=== PATIENT | female | born 1965 | race Asian ===

== ENCOUNTER 2023-08-13 09:04 | Observation (INO) ==
[2023-08-13 09:47] LABS: Hematocrit (blood only) 35.9 % (37.0-47.0); Mean Corpuscular Hemoglobin 23.1 pg (25.0-34.0); Mean Corpuscular Hgb Conc 30.6 g/dL (32.0-36.0); Mean Corpuscular Volume 75.4 fL (80.0-100.0); Mean Platelet Volume 11.5 fL (9.4-12.4); Platelet Count 273 K/uL (130-400); RDW Coefficient of Variation 14.7 % (11.5-14.5); RDW Standard Deviation 39.5 fL (36.4-46.3); Red Blood Count 4.76 M/uL (4.20-5.40)
--- NOTE | 2023-08-13 09:50 | Emergency Department Note ---
Impression & Plan Alteration in vision, Brain TIA, Generalized weakness ED Provider Note HISTORY OF PRESENT ILLNESS: Patient is a 57-year-old female presenting with increasing exhaustion and neurological deficits. Patient's daughter helps provide history. Reports the patient had a previous stroke in August 2021 which caused some left-sided weakness. She is on 81 mg of aspirin daily. Over the last 3 weeks, she has been having frequent episodes of changes in vision in the left eye and right arm numbness and tingling. States that she is also had intermittent episodes of slurred speech with the symptoms. Denies any recent falls or head injuries. Denies any chiropractic manipulation of her neck. No reported fevers. She has had some intermittent chest pain and nausea over the last 3 weeks. She was seen by her PCP yesterday and orders were placed, but they were referred to the emergency department due to her "altered mental status." Daughter reports the patient is alert but she is having increasing exhaustion and seems to get tired with the most minimal tasks. Patient describes her vision changes as "blurry and sometimes black spots in her left eye. ROS: as above PHYSICAL EXAM: Constitutional: Patient appears in no acute distress. HENT: Head: Normocephalic and atraumatic. Eyes: EOMI, PERRL Mouth/Throat: Mucous membranes moist. Neck: Trachea midline. Neck supple. Cardiovascular: RRR, No murmurs, rubs or gallops. Intact distal pulses. Pulmonary/Chest: No respiratory distress. Breath sounds clear and equal bilaterally. No wheezes or rales. Abdominal: Abdomen soft, no tenderness, rebound or guarding. Musculoskeletal: No edema, tenderness or deformity noted. Skin: Warm and dry. No rash, erythema, pallor or cyanosis Psychiatric: Appropriate mood and affect for situation. Neurological: Alert and keenly responsive. Facies symmetric. Able to raise eyebrows, close eyes, smile, puff mouth, stick out tongue, move tongue left and right and raise palate symmetrically. Able to shrug shoulders. PERRLA. SILT to forehead below eye and at jawline. Can hear soft noise bilaterally. Good finger to nose. Strength 5/5 in RUE and RLE. Strength 4/5 in LUE and LLE. SILT throughout bilateral upper and lower extremities. MDM: - Vitals signs showed hypertension - History obtained via patient. History as above. - Chronic conditions affecting care: previous CVA - Differential diagnoses include, but are not limited to: CVA; intracranial hemorrhage; ACS; dysrhythmia; electrolyte abnormality - Order placed for continuous cardiac monitoring. At this time, monitor showed rate of 60 bpm with normal sinus rhythm, per my interpretation. - External medical records reviewed. Primary care visit note dated yesterday was reviewed. Patient was seen in their clinic for her similar symptoms as today. They had ordered outpatient laboratory workup and outpatient MRI but had recommended referral to the ER for her altered mental status. - EKG interpreted by myself showed normal sinus rhythm. Rate bradycardic at 56 bpm. QT 408. No acute ischemic changes. - Laboratory workup interpreted by myself showed leukopenia (WBC 4.5); stable electrolytes; normal PT/INR - CXR negative for pneumonia, per my interpretation - CT head wo contrast for acute pathology, per radiology. Noted to have an age- indeterminate but likely chronic lacunar infarct in the right frontal lobe perez radiata, centrum semiovale and basal ganglia. - CTA head/neck showed mild plaque in the cavernous carotids without stenosis and no evidence of large vessel occlusion. Noted to have several hypodense foci within the right basal ganglia which favors old infarcts. - Discussion was had with case packer and sealer about patient's case and need for admission - Hospitalist consulted for admission - Patient admitted to [facility] for further evaluation and management. ASSESSMENT AND PLAN: Diagnosis: vision changes; brain TIA; generalized weakness Plan: admit Past Med/Surg History Social History Smoking Status: Never smoker Preferred Language: Nepali Feels Safe at Home: Yes Home Meds Home Medications Medication Instructions Recorded Confirmed amlodipine 10 mg tablet 10 mg PO QAM 08/13/23 08/13/23 atorvastatin 80 mg tablet 80 mg PO QAM 08/13/23 08/13/23 losartan 25 mg tablet 25 mg PO QAM 08/13/23 08/13/23 Results & Data (ED) Vital Signs Vital Signs - 24 hr 08/13/23 09:06 08/13/23 09:44 08/13/23 10:00 Temperature 36.3 C L Temperature Source Temporal Artery Scan Pulse Rate 68 63 58 L Pulse Rate from SpO2 Sensor 58 L Respiratory Rate 20 17 Respiratory Effort / Characteristics Non-Labored Spontaneous Respiratory Depth Normal Blood Pressure 148/78 H 138/80 Blood Pressure Mean 101 99 Pulse Oximetry 98 99 Oxygen Delivery Method Room Air Sepsis Recent Fever Within 48 Hours No Sepsis New/Unexplained Change in Mental Status N/A Sepsis Action Taken by Nursing No Action Required Laboratory Data 08/13/23 09:30 08/13/23 09:30 Lab Results 08/13/23 08/13/23 Range/Units 09:30 09:35 WBC 4.50 L (4.8-10.8) K/ul RBC 4.76 (4.20-5.40) M/uL Hgb 11.0 L (12.0-16.0) g/dl POC Hgb 11.9 L (12.0-16.0) g/dl Hct 35.9 L (37.0-47.0) % POC Hct 35 L (37-47) % MCV 75.4 L (80.0-100.0) fL MCH 23.1 L (25.0-34.0) pg MCHC 30.6 L (32.0-36.0) g/dL RDW Std Deviation 39.5 (36.4-46.3) fL RDW Coeff of Lauryn 14.7 H (11.5-14.5) % Plt Count 273 (130-400) K/uL MPV 11.5 (9.4-12.4) fL PT 10.8 (9.0-12.0) Seconds INR 1.0 (0.9-1.1) APTT 30 (21-31) Seconds PTT Ratio 1.1 POC Sodium 143 (135-144) mmol/L Sodium 141 (136-145) mmol/L POC Potassium 3.7 (3.3-5.0) mmol/L Potassium 3.6 (3.5-5.1) mmol/L POC Chloride 104 (101-112) mmol/L Chloride 107 (98-107) mmol/L Carbon Dioxide 28 (21-32) mmol/L POC Total CO2 30 (24-31) mmol/L Anion Gap 6 (3-11) POC Anion Gap 15.0 L (16-25) mmol/L POC BUN 17 (7-18) mg/dl BUN 17 (6-23) mg/dl Creatinine 0.73 (0.6-1.2) mg/dl POC Creatinine 0.7 (0.6-1.3) mg/dl Est Cr Clr Drug Dosing 68.7 ml/min Est GFR ( Amer) 106.0 ml/min Est GFR (Non-Af Amer) 91.4 ml/min BUN/Creatinine Ratio 23.3 H (10-20) Glucose 139 H (70-99(Fasting)) mg/dl POC Glucose (other) 135 H (70-99) mg/dl Calcium 9.1 (8.6-10.3) mg/dl POC Ioniz Calcium Radha 1.26 (1.12-1.32) mmol/l Magnesium 1.9 (1.7-2.4) mg/dl Total Bilirubin 0.9 (0.2-1.0) mg/dl AST 16 (13-39) U/L ALT 20 (7-52) U/L Alkaline Phosphatase 56 (34-104) U/L Total Protein 6.8 (6.0-8.3) gm/dl Albumin 4.3 (3.4-5.0) gm/dl Globulin 2.5 (2.5-4.0) gm/dl Albumin/Globulin Ratio 1.7 (0.9-2) Administered Medications Discontinued Medications Ioversol (Optiray 320 125ml) 112 ml IV ONCE ONE Stop: 08/13/23 10:37 Last Admin: 08/13/23 10:36 Dose: 112 ml Documented By: BARI Imaging Data Radiologist's Impression: Chest X-Ray 08/13/23 09:13 XR chest 1V portable HISTORY: stroke alert COMPARISON: None. FINDINGS: There are low lung volumes. No pleural effusions. No pneumothorax. The cardiac silhouette is mildly enlarged. This could be due to the AP portable technique and low lung volumes. No evidence for pulmonary edema. No focal lung consolidations to suggest a pneumonia. No acute fractures. IMPRESSION: Mild cardiomegaly. This could be technical. Otherwise, no acute process within the chest. ACT 112: Negative or not required by law. Electronically signed by: Teodoro Gonzalez M.D. 08/13/2023 10:[address] 08/13/23 09:29 CT head/brain wo con CLINICAL HISTORY: 57 years-old Female with L eye vision loss. Acute left eye vision loss with strokelike symptoms TECHNIQUE: Multiple axial CT images of the head were obtained without contrast. A dose lowering technique was utilized adhering to the principles of ALARA. COMPARISON: CTA of the head of same day FINDINGS: No acute intracranial hemorrhage, midline shift, intracranial mass, hydrocephalus, territorial ischemia or abnormal extra-axial collection. Hypodense foci within the right frontal lobe perez radiata, centrum semiovale and basal ganglia are noted including a 1.6 and meter right coronal radiata focus on image 16 series 2. Mild white matter hypodensities. Cerebral vascular calcifications. The calvarium is intact. The paranasal sinuses, mastoid air cells, and middle ear cavities are clear. IMPRESSION: 1. No acute intracranial hemorrhage, midline shift or acute territorial infarct. 2. Age-indeterminate however likely chronic lacunar infarcts within the right frontal lobe perez radiata, centrum semiovale and basal ganglia. ACT 112: Negative or not required by law. The above report was generated using voice recognition software. It may contain grammatical, syntax or spelling errors. Electronically signed by: Osmany Silveira M.D. 08/13/2023 11:08 AM Head CTA 08/13/23 09:29 CTA ANGIOGRAPHY OF THE HEAD CLINICAL HISTORY: Left eye vision loss. COMPARISON STUDY: No previous studies for comparison. TECHNIQUE: Helical axial images of the head were obtained following uneventful intravenous administration of 112 cc of Optiray. Sagittal and coronal reconstructions were viewed as well as maximal intensity projections on an independent 3-D workstation. Automated exposure control was utilized for the study. A dose lowering technique was utilized adhering to the principles of ALARA. CT DOSE: 929.94 mGy.cm FINDINGS: No acute intracranial hemorrhage is identified. Ventricular system is normal. Basal cisterns are patent. Several hypodense foci within the right basal ganglia measure up to 1.8 cm. The bilateral M1, M2, A1 and A2 segments are patent. There is mild plaque within the bilateral cavernous carotids without stenosis. There is no intracranial aneurysm. There is no vessel occlusion. There is mild plaque within the deep 4 segment of the left vertebral artery without stenosis. History circulation is intact IMPRESSION: 1. No vessel occlusion identified. No intracranial aneurysm. 2. Mild plaque within the cavernous carotids without stenosis. 3. Several hypodense foci within the right basal ganglia. Although technically age indeterminate, these favor old infarcts. ACT 112: Negative or not required by law. Electronically signed by: Mikel Page M.D. 08/13/2023 10:57 AM Neck CTA 08/13/23 09:29 NECK CTA HISTORY: L eye vision loss TECHNIQUE: Multiaxial CT images of the neck were performed following the intravenous administration of contrast to evaluate the major cervical vessels. 3D/MIP images were also obtained. Sagittal and coronal reformats were reviewed. All measurements were calculated based on NASCET criteria. A dose lowering technique was utilized adhering to the principles of ALARA. COMPARISON STUDY: None. FINDINGS: The aortic arch and proximal great vessels are widely patent. There is no significant stenosis, occlusion, or dissection identified within the bilateral common carotid, internal carotid, or vertebral arteries. A few subcentimeter thyroid nodules. These do not meet CT criteria for follow-up. There is a punctate focus of calcified plaque within the left carotid bulb and within the distal left vertebral artery. Mild noncalcified atherosclerotic plaque within the proximal left subclavian artery without significant stenosis. IMPRESSION: No significant stenosis, occlusion, or dissection identified within the carotid or vertebral arteries. ACT 112: Negative or not required by law. Electronically signed by: Teodoro Gonzalez M.D. 08/13/2023 10:52 AM Discharge Plan Visit Data Chief Complaint: TIA Symptoms Stated Complaint: EXHAUSTED,VISUAL DISTURBANCE L EYE,STROKE HX,DOC R ED Provider: Kiki Lange Discharge Problem: Alteration in vision, Brain TIA, Generalized weakness Forms Stand Alone Forms: My [facility] Prescriptions Prescriptions: No Action atorvastatin 80 mg tablet 80 mg PO QAM amlodipine 10 mg tablet 10 mg PO QAM losartan 25 mg tablet 25 mg PO QAM Referrals Referrals: PCP,NO [Physician] -
[2023-08-13 09:51] LABS: iSTAT Creatinine 0.7 mg/dl (0.6-1.3); iSTAT Hemoglobin 11.9 g/dl (12.0-16.0); iSTAT Ionized Calcium 1.26 mmol/l (1.12-1.32); iSTAT Potassium 3.7 mmol/L (3.3-5.0)
[2023-08-13 10:04] LABS: Albumin Globulin Ratio 1.7 (0.9-2); Albumin Level 4.3 gm/dl (3.4-5.0); BUN Creatinine Ratio 23.3 (10-20); Bilirubin,Total 0.9 mg/dl (0.2-1.0); Calcium 9.1 mg/dl (8.6-10.3); Creatinine Clr Calc Pharmacy 68.7 ml/min; Est GFR (Non-African American) 91.4 ml/min; Globulin 2.5 gm/dl (2.5-4.0); Magnesium 1.9 mg/dl (1.7-2.4); Potassium 3.6 mmol/L (3.5-5.1); Total Protein 6.8 gm/dl (6.0-8.3)
--- NOTE | 2023-08-13 10:06 | XRay Report ---
XR chest 1V portable HISTORY: stroke alert COMPARISON: None. FINDINGS: There are low lung volumes. No pleural effusions. No pneumothorax. The cardiac silhouette i s mildly enlarged. This could be due to the AP portable technique and low lung volumes. No evidence f or pulmonary edema. No focal lung consolidations to suggest a pneumonia. No acute fractures. IMPRESSION: Mild cardiomegaly. This could be technical. Otherwise, no acute process within the chest. ACT 112: Negative or not required by law. Electronically signed by: Teodoro Gonzalez M.D. 08/13/2023 10:04 AM
[2023-08-13 10:15] LABS: Partial Thromboplastin Ratio 1.1; Partial Thromboplastin Time 30 Seconds (21-31); Prothrombin Time 10.8 Seconds (9.0-12.0)
[2023-08-13] MEDS: OPTIRAY 320 125ml IV ONE (10:36)
--- NOTE | 2023-08-13 10:54 | CT Scan Report ---
NECK CTA HISTORY: L eye vision loss TECHNIQUE: Multiaxial CT images of the neck were performed following the intravenous administration o f contrast to evaluate the major cervical vessels. 3D/MIP images were also obtained. Sagittal and cor onal reformats were reviewed. All measurements were calculated based on NASCET criteria. A dose low ering technique was utilized adhering to the principles of ALARA. COMPARISON STUDY: None. FINDINGS: The aortic arch and proximal great vessels are widely patent. There is no significant sten osis, occlusion, or dissection identified within the bilateral common carotid, internal carotid, or v ertebral arteries. A few subcentimeter thyroid nodules. These do not meet CT criteria for follow-up. There is a punctate focus of calcified plaque within the left carotid bulb and within the distal left vertebral artery. Mild noncalcified atherosclerotic plaque within the proximal left subclavian arter y without significant stenosis. IMPRESSION: No significant stenosis, occlusion, or dissection identified within the carotid or vertebral arteries . ACT 112: Negative or not required by law. Electronically signed by: Teodoro Gonzalez M.D. 08/13/2023 10:52 AM
--- NOTE | 2023-08-13 10:59 | CT Scan Report ---
CTA ANGIOGRAPHY OF THE HEAD CLINICAL HISTORY: Left eye vision loss. COMPARISON STUDY: No previous studies for comparison. TECHNIQUE: Helical axial images of the head were obtained following uneventful intravenous administr ation of 112 cc of Optiray. Sagittal and coronal reconstructions were viewed as well as maximal inten sity projections on an independent 3-D workstation. Automated exposure control was utilized for the study. A dose lowering technique was utilized adhering to the principles of ALARA. CT DOSE: 929.94 mGy.cm FINDINGS: No acute intracranial hemorrhage is identified. Ventricular system is normal. Basal cistern s are patent. Several hypodense foci within the right basal ganglia measure up to 1.8 cm. The bilater al M1, M2, A1 and A2 segments are patent. There is mild plaque within the bilateral cavernous carotid s without stenosis. There is no intracranial aneurysm. There is no vessel occlusion. There is mild pl aque within the deep 4 segment of the left vertebral artery without stenosis. History circulation is intact IMPRESSION: 1. No vessel occlusion identified. No intracranial aneurysm. 2. Mild plaque within the cavernous carotids without stenosis. 3. Several hypodense foci within the right basal ganglia. Although technically age indeterminate, the se favor old infarcts. ACT 112: Negative or not required by law. Electronically signed by: Mikel Page M.D. 08/13/2023 10:57 AM
--- NOTE | 2023-08-13 11:10 | CT Scan Report ---
CT head/brain wo con CLINICAL HISTORY: 57 years-old Female with L eye vision loss. Acute left eye vision loss with stroke like symptoms TECHNIQUE: Multiple axial CT images of the head were obtained without contrast. A dose lowering tech nique was utilized adhering to the principles of ALARA. COMPARISON: CTA of the head of same day FINDINGS: No acute intracranial hemorrhage, midline shift, intracranial mass, hydrocephalus, territorial ischem ia or abnormal extra-axial collection. Hypodense foci within the right frontal lobe perez radiata, c entrum semiovale and basal ganglia are noted including a 1.6 and meter right coronal radiata focus on image 16 series 2. Mild white matter hypodensities. Cerebral vascular calcifications. The calvarium is intact. The paranasal sinuses, mastoid air cells, and middle ear cavities are clear . IMPRESSION: 1. No acute intracranial hemorrhage, midline shift or acute territorial infarct. 2. Age-indeterminate however likely chronic lacunar infarcts within the right frontal lobe perez rad iata, centrum semiovale and basal ganglia. ACT 112: Negative or not required by law. The above report was generated using voice recognition software. It may contain grammatical, syntax o r spelling errors. Electronically signed by: Osmany Silveira M.D. 08/13/2023 11:08 AM
--- NOTE | 2023-08-13 12:25 | History & Physical Report ---
Date of Service August 13, 2023 Assessment & Plan (1) Generalized weakness: Plan: Cristal Mcgrath is a 57yo F with PMH of stroke with cerebral ischemia (August 2021) with residual left-sided weakness , HTN, pre-diabetes, high cholesterol and microcytic hypochromic anemia who presented to the ED via referral by Gayle Marques PA-C ([facility]) for evaluation of increasing fatigue, alterations in vision of the left eye, right upper extremity weakness/nu mbness/tingling and nausea x 3 weeks. Neck CTA shows no significant stenosis, occlusion or dissection within the carotid or vertebral arteries. Head CTA shows no acute vessel occlusion or intracranial aneurysm. Head CT displays no evidence of acute intracranial hemorrhage, midline shift or acute territorial infarct. Also noted to have horizontal nystagmus in the left eye on exam. Will continue to observe patient. Order brain MRI, routine neuro consult. Order echo w/ bubble study, PT/OT evaluation. Routine fasting lipid panel in the AM. Given aspirin 324mg in ED. Continue aspirin 81mg po daily, high-dose statin. (2) Microcytic hypochromic anemia: Plan: CBC displays slight leukopenia, as well as microcytic, hypochromic anemia. Iron panel ordered for AM, repeat CBC. Could be a contributing factor to weakness, as above. (3) HTN (hypertension): Plan: Continue home amlodipine 10mg po QAM and losartan 25mg po QAM. (4) Pre-diabetes: Plan: A1C 5.8 earlier this month. BSG on admission 139. Repeat BMP in AM, add SSI as indicated. (5) High cholesterol: Plan: Continue home atorvastatin 80mg po QAM. DVT Prophylaxis: SCDs, SQ Heparin Code Status: Full Code PCP: Gayle Marques PA-C Dispo: Admit to PCU w/ Telemetry Patient seen in collaboration with Dr. Miguel. Please see addendum. I spent a total of 75 minutes coordinating, documenting, and providing care for this patient excluding time spent in the performance of separately billed services. This included personally reviewing all current laboratories and imaging studies, medical reconciliation, outpatient chart review and discussion with specialists. History of Present Illness Chief Complaint: Stroke-Like Symptoms Primary Care Provider: Gayle Marques PA-C Cristal Mcgrath is a 57yo F with PMH of stroke with cerebral ischemia (August 2021), HTN, pre-diabetes, high cholesterol and microcytic hypochromic anemia who presented to the ED via referral by Gayle Marques PA-C ([facility]) for evaluation of increasing fatigue, alterations in vision of the left eye, right upper extremity weakness/numbness/tingling and nausea x 3 weeks. History obtained from patient and her daughter (who overall translates directly for the patient), and from PCP records. Patient was offered translation services in the ED (patient primarily speaks Swazi), but daughter prefers to be the direct health and wellness advisor for her at this time. Daughter reports that the patient was seen by primary care yesterday (Gayle Marques PA-C) with the same continuation of symptoms she is presenting with here today; however, she was referred to report to the ED with any further mental status changes/no improvement of symptoms. Daughter reports that the patient experienced a stroke in August 2021, which left her with resulting weakness of the entire left side of her body. Patient does currently take 81mg of aspirin daily, and her daughter reports that the patient has not followed-up with neurology since her stroke in 2021. But over the past 3 weeks, the patient has been complaining of intermittently fleeting episodes of v ision changes in her left eye and right arm weakness/numbness/tingling. Per her daughter, the patient has been experiencing on/off episodes of blurriness and "black spots" in her left eye. These episodes of vision alteration are typically invoked with positional changes, and are often worse when sitting down per the daughter's explanation. Patient does report dizziness sometimes during these episodes as well; daughter explains that the patient has to sit down and close both eyes to assist in the cessation of such episodes, which generally does the trick. Daughter denies any prior diagnosis of vertigo, nor that the patient takes any medication for dizzy spells. In addition, the right arm weakness/numbness/tingling generally comes "in waves" per her daughter. Patient does report pain in her right shoulder as well, which radiates all the way down to her hand during these "waves" of intermittent upper right extremity changes. Patient has not been taking any OTC pain medications for this fleeting right arm pain, per her daughter. Patient denies any left lower extremity deficits/changes at this time. Patient does report intermittent chest pain, which has also been occurring on/off for the past 3 weeks. Daughter denies any episodes of SOB associated with the chest pain, and also denies any prior occurrences where the patient experienced chest pain as so. Her daughter also mentions instances where the patient has been slurring her speech occasionally over the past 3 weeks. However, the daughter denies any signs of facial drooping at this time. Patient also denies any fevers, recent illnesses, body aches or headaches. Daughter did mention that the patient has become increasingly tired/fatigued x 3 weeks, and that the patient reports increased intensity of the symptoms discussed above ( left eye vision changes, right-sided UE weakness/numbness/tingling, dizziness, nausea) when she is sleepy. Patient denies any episodes of vomiting, and also denies taking any anti-emetic medications for the ongoing on/off nausea x 3 weeks. Daughter explains that the patient is able to ambulate just fine around the house (daughter lives with her); she does not use any assistive devices when walking (e.g., walker, cane, etc.) and does not require any direct assistance with ADLs. Daughter states that the patient has not had any recent falls or fainting spells/episodes where she's lost consciousness. Daughter mentions that the patient has been alert at home, but has been acting more exhausted. Pertinent Imaging Results - Performed by ED: Neck CTA shows no significant stenosis, occlusion or dissection within the carotid or vertebral arteries. Head CTA shows no acute vessel occlusion or intracranial aneurysm. Head CT displays no evidence of acute intracranial hemorrhage, midline shift or acute territorial infarct. Chest x-ray shows no acute process within the chest; mild cardiomegaly was noted, however, it was mentioned it may be technical. Pertinent Lab Results - Performed by ED: CBC displays slight leukopenia, as well as microcytic, hypochromic anemia. Chem panel displays slightly elevated in BUN/Cr ratio, hyperglycemia. Other Pertinent Results - Performed by ED: Personal interpretation of the EKG reveals normal sinus rhythm, no acute ischemic changes; Vent rate 62bpm, AL interval 146ms, QRS duration 76ms. Allergies Allergy/AdvReac Type Severity Reaction Status Date / Time No Known Drug Allergies Allergy Unverified 08/13/23 13:41 Home Medications Medication Instructions Recorded Confirmed Type amlodipine 10 mg tablet 10 mg PO QAM 08/13/23 08/13/23 History aspirin 81 mg tablet 81 mg PO DAILY 08/13/23 08/13/23 History atorvastatin 80 mg tablet 80 mg PO QAM 08/13/23 08/13/23 History losartan 25 mg tablet 25 mg PO QAM 08/13/23 08/13/23 History Past Med/Surg History Medical History (Updated 08/13/23 @ 14:45 by Kaya Zaidi PA-C) Microcytic hypochromic anemia High cholesterol Pre-diabetes HTN (hypertension) Family History Mother Stroke Father Coronary heart disease Social History Smoking Status: Never smoker Hx Alcohol Use: No Hx Substance Use: No Preferred Language: Croatian Communication Ability: Effective Communication Ability Comment: Swazi [employer] Integration Architect Required: Yes Beliefs That Will Affect Care: Gnosticist Gnosticist Beliefs: Mandaen Current Living Situation: Family Current Living Situation Comment: Patient currently lives at home with her katty angel. Other Information That Helps Us Care for You: No Feels Safe at Home: Yes Safety Concerns: Feels Safe At This Time Review of Systems Constitutional: + fatigue (patient more exhausted than u sual, per daughter), + weakness (right upper extremity) and + daytime sleepiness; no fever, no chills and no body aches Eyes: as per Subjective / HPI Respiratory: no cough and no dyspnea Cardiovascular: as per Subjective / HPI Gastrointestinal: + nausea; no abdominal pain and no vomit ing Patient's daughter does report that she has been experiencing some difficulty swallowing since her stroke in August 2021. Genitourinary: no dysuria and no difficulty urinating Musculoskeletal: as per Subjective / HPI Integumentary: no rash Neurologic: as per Subjective / HPI Psychiatric: as per Subjective / HPI; no confusion Endocrine: as per Subjective / HPI Physical Exam Constitutional: WD/WN, vitals as above Eyes: + nystagmus (noted in the left eye on ex amination); normal pupil size Patient having difficulty viewing the left upper visual field with her left eye, complicated by horizontal nystagmus in the left eye upon conducting neurological examination. Neck: trachea midline, no thyromegaly Respiratory: normal respiratory effort, lungs clear to auscultation Cardiovascular: RRR, no murmur, no edema Gastrointestinal (Abdomen): normal bowel sounds, soft, nontender, no hepatosplenomegaly Musculoskeletal: Head/Neck/Chest: neck supple; full ROM of neck Extremities: extremities normal to inspection; full ROM of extremities and full ROM of lower extremities Shoulder: normal ROM of shoulder Knee: normal ROM of knee Strength 3/5 L UE, Strength 5/5 R UE Skin: no rashes, warm and dry Neurologic: Speech / Cognition: normal speech Coordination: normal [id number] test, normal [id number] test and normal rapid alternating movements Psychiatric: A+Ox3, euthymic affect Apperance: appropriately dressed and appropriately groomed Eye Contact: good eye contact Speech: normal rate/rhythm/volume of speech Results & Data Results & Data Vital Signs (Past 12 Hours) Vital Signs Temp Pulse Resp BP Pulse Ox O2 Del Method 08/13/23 12:00 59 L 14 135/78 95 Room Air 08/13/23 11:00 58 L 14 132/78 97 Room Air 08/13/23 10:00 58 L 17 138/80 99 08/13/23 09:44 63 08/13/23 09:06 36.3 C L 68 20 148/78 H 98 Room Air Laboratory Results Short CBC 08/13/23 Range/Units 09:30 WBC 4.50 L (4.8-10.8) K/ul Hgb 11.0 L (12.0-16.0) g/dl Hct 35.9 L (37.0-47.0) % Plt Count 273 (130-400) K/uL BMP 08/13/23 09:30 Sodium 141 Potassium 3.6 Chloride 107 Carbon Dioxide 28 BUN 17 Creatinine 0.73 Glucose 139 H Calcium 9.1 Liver Function 08/13/23 Range/Units 09:30 Total Bilirubin 0.9 (0.2-1.0) mg/dl AST 16 (13-39) U/L ALT 20 (7-52) U/L Alkaline Phosphatase 56 (34-104) U/L Albumin 4.3 (3.4-5.0) gm/dl Diagnostic Findings Chest X-Ray 08/13/23 09:13 XR chest 1V portable HISTORY: stroke alert COMPARISON: None. FINDINGS: There are low lung volumes. No pleural effusions. No pneumothorax. The cardiac silhouette is mildly enlarged. This could be due to the AP portable technique and low lung volumes. No evidence for pulmonary edema. No focal lung consolidations to suggest a pneumonia. No acute fractures. IMPRESSION: Mild cardiomegaly. This could be technical. Otherwise, no acute process within the chest. ACT 112: Negative or not required by law. Electronically signed by: Teodoro Gonzalez M.D. 08/13/2023 10:[address] 08/13/23 09:29 CT head/brain wo con CLINICAL HISTORY: 57 years-old Female with L eye vision loss. Acute left eye vision loss with strokelike symptoms TECHNIQUE: Multiple axial CT images of the head were obtained without contrast. A dose lowering technique was utilized adhering to the principles of ALARA. COMPARISON: CTA of the head of same day FINDINGS: No acute intracranial hemorrhage, midline shift, intracranial mass, hydrocephalus, territorial ischemia or abnormal extra-axial collection. Hypodense foci within the right frontal lobe perez radiata, centrum semiovale and basal ganglia are noted including a 1.6 and meter right coronal radiata focus on image 16 series 2. Mild white matter hypodensities. Cerebral vascular calcifications. The calvarium is intact. The paranasal sinuses, mastoid air cells, and middle ear cavities are clear. IMPRESSION: 1. No acute intracranial hemorrhage, midline shift or acute territorial infarct. 2. Age-indeterminate however likely chronic lacunar infarcts within the right frontal lobe perez radiata, centrum semiovale and basal ganglia. ACT 112: Negative or not required by law. The above report was generated using voice recognition software. It may contain grammatical, syntax or spelling errors. Electronically signed by: Osmany Silveira M.D. 08/13/2023 11:08 AM Head CTA 08/13/23 09:29 CTA ANGIOGRAPHY OF THE HEAD CLINICAL HISTORY: Left eye vision loss. COMPARISON STUDY: No previous studies for comparison. TECHNIQUE: Helical axial images of the head were obtained following uneventful intravenous administration of 112 cc of Optiray. Sagittal and coronal reconstructions were viewed as well as maximal intensity projections on an independent 3-D workstation. Automated exposure control was utilized for the study. A dose lowering technique was utilized adhering to the principles of ALARA. CT DOSE: 929.94 mGy.cm FINDINGS: No acute intracranial hemorrhage is identified. Ventricular system is normal. Basal cisterns are patent. Several hypodense foci within the right basal ganglia measure up to 1.8 cm. The bilateral M1, M2, A1 and A2 segments are patent. There is mild plaque within the bilateral cavernous carotids without stenosis. There is no intracranial aneurysm. There is no vessel occlusion. There is mild plaque within the deep 4 segment of the left vertebral artery without stenosis. History circulation is intact IMPRESSION: 1. No vessel occlusion identified. No intracranial aneurysm. 2. Mild plaque within the cavernous carotids without stenosis. 3. Several hypodense foci within the right basal ganglia. Although technically age indeterminate, these favor old infarcts. ACT 112: Negative or not required by law. Electronically signed by: Mikel Page M.D. 08/13/2023 10:57 AM Neck CTA 08/13/23 09:29 NECK CTA HISTORY: L eye vision loss TECHNIQUE: Multiaxial CT images of the neck were performed following the intravenous administration of contrast to evaluate the major cervical vessels. 3D/MIP images were also obtained. Sagittal and coronal reformats were reviewed. All measurements were calculated based on NASCET criteria. A dose lowering technique was utilized adhering to the principles of ALARA. COMPARISON STUDY: None. FINDINGS: The aortic arch and proximal great vessels are widely patent. There is no significant stenosis, occlusion, or dissection identified within the bilateral common carotid, internal carotid, or vertebral arteries. A few subcentimeter thyroid nodules. These do not meet CT criteria for follow-up. There is a punctate focus of calcified plaque within the left carotid bulb and within the distal left vertebral artery. Mild noncalcified atherosclerotic plaque within the proximal left subclavian artery without significant stenosis. IMPRESSION: No significant stenosis, occlusion, or dissection identified within the carotid or vertebral arteries. ACT 112: Negative or not required by law. Electronically signed by: Teodoro Gonzalez M.D. 08/13/2023 10:52 AM Medications Administered Discontinued Medications Aspirin (Aspirin 81 Mg Chew) 324 mg PO NOW STA Stop: 08/13/23 13:55 Last Admin: 08/13/23 14:02 Dose: 324 mg Documented By: SHAISTAO Ioversol (Optiray 320 125ml) 112 ml IV ONCE ONE Stop: 08/13/23 10:37 Last Admin: 08/13/23 10:36 Dose: 112 ml Documented By: BARI ECG Additional Comments: Personal interpretation of the EKG reveals normal sinus rhythm, no acute ischemic changes; Vent rate 62bpm, AL interval 146ms, QRS duration 76ms. Code Status & VTE Plan Code Status FULL CODE Supervising Physician Co-Signing Physician Notes Pt was seen and examined by myself, Thea Miguel MD on the day of service. Care was coordinated with Kaya Zaidi PA-C. 57yoF with Hx of prior CVA presenting with fatigue, numbness and tingling of right extremities and left eye vision changes and nystagmus. Daughter present at bedside provides the Hx. States that pt had undiagnosed severe HTN that previously caused her strokes. On exam pt in no acute distress, noted L arm weakness. Stroke workup, anemia panel for noted microcytic anemia (?thalessemia in pt history?) Neurology consult, appreciate recs Otherwise as above. I spent a total [id number] coordinating, documenting, and providing care for this patient excluding time spent in the performance of separately billed services (3) HTN (hypertension) Hypertension type: unspecified Qualified Code(s): I10 - Essential (primary) hypertension
[2023-08-13] MEDS: ASPIRIN 81 MG CHEW PO STA (14:02)
--- NOTE | 2023-08-13 15:52 | Electrocardiogram Report ---
Test Reason : Blood Pressure : / mmHG Vent. Rate : 062 BPM Atrial Rate : 062 BPM P-R Int : 146 ms QRS Dur : 076 ms QT Int : 386 ms P-R-T Axes : 035 009 012 degrees QTc Int : 391 ms Normal sinus rhythm Normal ECG No previous ECGs available Confirmed by Etienne Thomas ([id number]) on 08/13/2023 3:52:08 PM Referred By: REFERRED SELF Confirmed By:Etienne Thomas
[2023-08-13] MEDS ORDERED: PHARMACIST DISCHARGE MED REC CONSULT PRN (15:59)
[2023-08-13] MEDS ORDERED: ONDANSETRON INJ 2 MG/ML 2 ML VIAL IV PRN (15:59)
[2023-08-13] MEDS ORDERED: POLYETHYLENE (MIRALAX) 17 GM PACK PO PRN (15:59)
[2023-08-13] MEDS ORDERED: ACETAMINOPHEN 325 MG TAB PO PRN (15:59)
[2023-08-13] MEDS: HEPARIN SOD 5,000 UNIT/0.5 ML VIAL SQ SCH (21:18)
[2023-08-13] MEDS: GADOBUTROL 65ML VIAL IV ONE (22:16)
--- NOTE | 2023-08-13 22:55 | Magnetic Resonance Report ---
Exam(s): MRI HEAD W/WO Contrast IV Amt: 6CC GADAVIST EXAM: MR Head Without and With Intravenous Contrast CLINICAL HISTORY: Reason for exam: stroke eval. TECHNIQUE: Magnetic resonance images of the head/brain without and with intravenous contrast in multiple planes. CONTRAST: Patient received 6CC GADAVIST of IV contrast COMPARISON: CT head 08/13/2023. FINDINGS: Brain: Age-appropriate central and peripheral atrophy. No acute stroke. Old right basal ganglia and perez radiata lacunar infarcts. Moderate degree of supratentorial periventricular and subcortical white matter hyperintensities on FLAIR and T2-weighted images. No acute hemorrhage or abnormal extra-axial fluid collection. No mass lesion. No abnormal parenchymal or leptomeningeal enhancement postcontrast. Ventricles: No midline shift. No ventriculomegaly. Bones/joints: Unremarkable. No acute fracture. Sinuses: Unremarkable as visualized. No acute sinusitis. Mastoid air cells: Unremarkable as visualized. No mastoid effusion. Orbits: Unremarkable as visualized. IMPRESSION: 1. No acute stroke or hemorrhage. 2. Old right basal ganglia and perez radiata white matter infarcts. 3. Nonspecific white matter changes most commonly seen with small vessel disease. Electronically signed by: Olvin Cummings M.D. 08/13/23 22:54 PM
[2023-08-14 06:15] LABS: Hematocrit (blood only) 36.9 % (37.0-47.0); Hemoglobin 11.2 g/dl (12.0-16.0); Mean Corpuscular Hemoglobin 22.6 pg (25.0-34.0); Mean Corpuscular Hgb Conc 30.4 g/dL (32.0-36.0); Mean Corpuscular Volume 74.4 fL (80.0-100.0); Platelet Count 263 K/uL (130-400); RDW Coefficient of Variation 14.5 % (11.5-14.5); RDW Standard Deviation 38.6 fL (36.4-46.3); Red Blood Count 4.96 M/uL (4.20-5.40); White Blood Count 4.07 K/ul (4.8-10.8)
[2023-08-14 06:40] LABS: Calcium 8.9 mg/dl (8.6-10.3); Chol HDL Ratio 2.4 (0-5); Est GFR (African American) 94.9 ml/min; Est GFR (Non-African American) 81.8 ml/min; Potassium 3.8 mmol/L (3.5-5.1)
[2023-08-14 06:58] LABS: Ferritin 189.6 ng/ml (8-388)
--- NOTE | 2023-08-14 08:45 | Neurology Consultation ---
Date of Consultation August 14, 2023 Assessment & Plan (1) Generalized weakness: (2) Alteration in vision: Plan 57 y/o F with right arm paresthesias with associated aching pain in arm and shoulder/neck pain; suspect this could represent cervical spine disease in light of normal MRI brain. Doubt these symptoms are cerebrovascular in nature. Regarding intermittent left eye vision loss, GCA should be considered with patient's age and presence of headache. - Recommend ophthalmology evaluation for dilated funduscopy to eval for NAION/AION - Check ESR/CRP, if elevated consider temporal artery biopsy and empiric steroid treatment - MRI C Spine (can be done outpatient) - Outpatient EMG/NCS of RUE - Refer to OP Neurology Telehealth Consultation Telehealth Information Telehealth Information: I performed this visit using a real-time telehealth connection between my location and the patients location ([facility]). After connecting through interactive tele-video, patient was identified by name and date of and/or wristband check.Patient (or authorized healthcare passenger representative) was informed that this was a telemedicine visit and it was being conducted confidentially over secure lines. My office door was closed and no one else was present in the room with me.Patient (or authorized healthcare passenger representative) provided consent to proceed with the visit, expressed an understanding of privacy and security of the telemedicine visit, and gave permission to have a hospital passenger representative in the room in order to assist with the visit and to conduct portions of the visit, as needed. I informed the patient (or authorized healthcare passenger representative) that I reviewed their record and presented the opportunity for them to ask any questions regarding the visit today. The patient agreed to participate. 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 Daughter present at bedside who acts as right of way maintenance supervisor by her preference. Patient had no neuro follow-up after stroke. For the last 3 weeks the patient has been more tired and reports that her left eye vision is "going in and out." Denies double vision. Also reports having tingling in right arm and hand as well as chest pain radiating into right shoulder and chest. Daughter reports balance issues that are worse. Has nausea with the exhaustion and gets YAÑEZ with the symptoms. YAÑEZ only present some of the time. Symptoms have been present for last 3 weeks of varying intensity but never resolved. Occasional forgets things, no behavioral issues. Paresthesias only involve the arm, not leg or face. She feels aching pain into the arm as well as neck pain, more on left than right. Allergies Allergy/AdvReac Type Severity Reaction Status Date / Time No Known Drug Allergies Allergy Unverified 08/13/23 13:41 Home Medications Medication Instructions Recorded Confirmed Type amlodipine 10 mg tablet 10 mg PO QAM 08/13/23 08/13/23 History aspirin 81 mg tablet 81 mg PO DAILY 08/13/23 08/13/23 History atorvastatin 80 mg tablet 80 mg PO QAM 08/13/23 08/13/23 History losartan 25 mg tablet 25 mg PO QAM 08/13/23 08/13/23 History Patient History Medical History (Updated 08/13/23 @ 14:45 by Kaya Zaidi PA-C) Microcytic hypochromic anemia High cholesterol Pre-diabetes HTN (hypertension) Family History Mother Stroke Father Coronary heart disease Social History Smoking Status: Never smoker Second Hand Exposure: No; Do You Dip or Chew Tobacco: No; Tobacco Cessation Education Requested by Patient: No Hx Alcohol Use: No Hx Substance Use: No Preferred Language: Jamaican Communication Ability: Effective Communication Ability Comment: Jamaican Communication Tools: Other Dressmaker Helper Required: No Beliefs That Will Affect Care: None Current Living Situation: Spouse and Family Current Living Situation Comment: Two story single family home with & two daughters Other Information That Helps Us Care for You: No Feels Safe at Home: Yes Safety Concerns: Feels Safe At This Time Assistive Devices: None Review of Systems Negative unless noted in HPI Physical Exam Mental Status: AOx4, no aphasia, no dysarthria, attention normal CN: PERRL, EOMI, left lower facial droop, tongue midline Motor: mild LUE drift, normal antigravity power in RUE, BLE Sensory: intact Coordination: intact FNF Reflexes: cannot be assessed via telemedicine Gait: deferred Results & Data Vital Signs (Past 12 Hours) Vital Signs Temp Pulse Pulse Resp BP BP Pulse Ox 08/14/23 08:09 36.8 C 76 17 119/71 93 08/14/23 03:21 36.5 C 65 18 123/74 96 08/13/23 22:35 64 08/13/23 22:33 36.5 C 68 17 138/78 94 08/13/23 22:16 77 16 129/72 96 08/13/23 21:31 129/72 08/13/23 21:31 75 16 96 08/13/23 21:30 74 17 95 08/13/23 21:01 68 14 97 08/13/23 21:01 116/68 08/13/23 21:00 79 18 95 O2 Del Method 08/14/23 08:09 Room Air 08/14/23 03:21 Room Air 08/13/23 22:35 08/13/23 22:33 Room Air 08/13/23 22:16 Room Air 08/13/23 21:31 08/13/23 21:31 08/13/23 21:30 08/13/23 21:01 08/13/23 21:01 08/13/23 21:00 Diagnostic Findings Brain MRI: IMPRESSION: 1. No acute stroke or hemorrhage. 2. Old right basal ganglia and perez radiata white matter infarcts. 3. Nonspecific white matter changes most commonly seen with small vessel disease. Neck CTA: IMPRESSION: No significant stenosis, occlusion, or dissection identified within the carotid or vertebral arteries. Head CTA IMPRESSION: 1. No vessel occlusion identified. No intracranial aneurysm. 2. Mild plaque within the cavernous carotids without stenosis. 3. Several hypodense foci within the right basal ganglia. Although technically age indeterminate, these favor old infarcts.
[2023-08-14] MEDS: LOSARTAN POTASSIUM 25 MG TAB PO SCH (09:32)
[2023-08-14] MEDS: ATORVASTATIN 40 MG TAB PO SCH (09:33)
[2023-08-14] MEDS: amLODIPine BESYLATE 5 MG TAB PO SCH (09:33)
[2023-08-14] MEDS: ASPIRIN 81 MG ECTAB PO SCH (09:33)
[2023-08-14 14:26] LABS: Folate (Folic Acid),Ser orPlas 16.68 ng/ml (>5.38)
--- NOTE | 2023-08-14 17:35 | Hospitalist Progress Note ---
Date of Service August 14, 2023 Assessment & Plan (1) Generalized weakness: (2) Microcytic hypochromic anemia: (3) HTN (hypertension): (4) Pre-diabetes: (5) High cholesterol: Plan Ms. Cristal Mcgrath is a 57yo F with PMH of stroke with cerebral ischemia (August 2021) with residual left-sided weakness , HTN, pre-diabetes, high cholesterol and microcytic hypochromic anemia who presented to the ED via referral by Gayle Marques PA-C ([facility]) for evaluation of increasing fatigue, alterations in vision of the left eye, right upper extremity weakness/numbness/tingling and nausea x 3 weeks. Neurology evalauted patient who does not suspect stroke or TIA; however would like to rule out GCA or NAION/AION #Headache #Vision Changes within Left eye #Prior stroke with left deficits Neck CTA shows no significant stenosis, occlusion or dissection within the carotid or vertebral arteries. Head CTA shows no acute vessel occlusion or intracranial aneurysm. Head CT displays no evidence of acute intracranial hemorrhage, midline shift or acute territorial infarct. brain MRI: chronic infarcts in basal ganglia, no acute changes routine neuro consult -ESR/CRP normal -Will obtain ophthalmology consult to r/o NAION/AION echo w/ bubble study EF 60-65%, no ASD/PFO LDL at goal <70 Continue aspirin 81mg po daily, high-dose statin. #Microcytic hypochromic anemia: CBC displays slight leukopenia, as well as microcytic, hypochromic anemia. B12 low, will replace --could contibute to fatigue TSH in am #HTN Continue home amlodipine 10mg po QAM and losartan 25mg po QAM. # Pre-diabetes: A1C 5.8 earlier this month. BSG on admission 139. Repeat BMP in AM, add SSI as indicated. #HLD stable, ldl at goal Continue home atorvastatin 80mg po QAM. DVT Prophylaxis: SCDs, SQ Heparin Code Status: Full Code PCP: Galye Marques PA-C Dispo: Admit to PCU w/ Telemetry Admission and Anticipated Discharge Date Admission Date: August 13, 2023 Subjective NAEO Reports feeling like "something is behind [her] eye" Denies any tenderness to evangelical, any floaters, or other acute concerns, denies double vision or vertigo Physical Exam Constitutional: WD/WN, vitals as above Respiratory: normal respiratory effort, lungs clear to auscultation Cardiovascular: RRR, no murmur, no edema Results & Data Results & Data Vital Signs (Past 12 Hours) Vital Signs Temp Pulse Resp BP Pulse Ox O2 Del Method 08/14/23 15:38 36.9 C 73 17 107/63 91 Room Air 08/14/23 11:36 37.0 C 79 18 129/78 95 Room Air 08/14/23 08:09 36.8 C 76 17 119/71 93 Room Air Laboratory Results Short CBC 08/14/23 Range/Units 05:50 WBC 4.07 L (4.8-10.8) K/ul Hgb 11.2 L (12.0-16.0) g/dl Hct 36.9 L (37.0-47.0) % Plt Count 263 (130-400) K/uL BMP 08/14/23 05:50 Sodium 141 Potassium 3.8 Chloride 108 H Carbon Dioxide 29 BUN 20 Creatinine 0.80 Glucose 102 H Calcium 8.9 Medications Administered Home Medications Medication Instructions Recorded Confirmed Last Taken amlodipine 10 mg tablet 10 mg PO QAM 08/13/23 08/13/23 Unknown aspirin 81 mg tablet 81 mg PO DAILY 08/13/23 08/13/23 Unknown atorvastatin 80 mg tablet 80 mg PO QAM 08/13/23 08/13/23 Unknown losartan 25 mg tablet 25 mg PO QAM 08/13/23 08/13/23 Unknown Active Medications Generic Name Dose Route Start Last Admin Trade Name Freq PRN Reason Stop Dose Admin Amlodipine Besylate 10 mg 08/14/23 09:00 08/14/23 09:33 Amlodipine Besylate 5 Mg Tab PO 09/13/23 08:59 10 mg QAM ASHLEY Administration Aspirin 81 mg 08/14/23 09:00 08/14/23 09:33 Aspirin 81 Mg Ectab PO 09/13/23 08:59 81 mg DAILY ASHLEY Administration Atorvastatin Calcium 80 mg 08/14/23 09:00 08/14/23 09:33 Atorvastatin 40 Mg Tab PO 09/13/23 08:59 80 mg QAM ASHLEY Administration Heparin Sodium (Porcine) 5,000 units 08/13/23 21:00 08/14/23 09:33 Heparin Sod 5,000 Unit/0.5 Ml Vial SQ 09/12/23 20:59 5,000 units Q12 ASHLEY Administration Losartan Potassium 25 mg 08/14/23 09:00 08/14/23 09:32 Losartan Potassium 25 Mg Tab PO 09/13/23 08:59 25 mg QAM ASHLEY Administration (3) HTN (hypertension) Hypertension type: unspecified Qualified Code(s): I10 - Essential (primary) hypertension
[2023-08-15 07:18] LABS: Hematocrit (blood only) 36.9 % (37.0-47.0); Hemoglobin 11.5 g/dl (12.0-16.0); Mean Corpuscular Hemoglobin 22.7 pg (25.0-34.0); Mean Corpuscular Hgb Conc 31.2 g/dL (32.0-36.0); Mean Corpuscular Volume 72.9 fL (80.0-100.0); Mean Platelet Volume 10.9 fL (9.4-12.4); Platelet Count 259 K/uL (130-400); RDW Standard Deviation 36.7 fL (36.4-46.3); Red Blood Count 5.06 M/uL (4.20-5.40); White Blood Count 4.33 K/ul (4.8-10.8)
[2023-08-15 07:35] LABS: Calcium 8.9 mg/dl (8.6-10.3); Creatinine Clr Calc Pharmacy 64.5 ml/min; Est GFR (African American) 99.3 ml/min; Est GFR (Non-African American) 85.7 ml/min; Potassium 3.7 mmol/L (3.5-5.1)
[2023-08-15 07:51] LABS: Thyroid Stimulating Hormone 1.114 uIu/ml (0.300-4.500)
[2023-08-15] MEDS: CYANOCOBALAMIN (B-12) 500 MCG TABLET PO SCH (08:46)
--- NOTE | 2023-08-15 09:44 | Discharge Summary ---
Discharge Summary Date of Service August 15, 2023 Notes For Next Care Provider ESR/CRP negative Please ensure follow up for outpatient Ophthalmology Please ensure follow up discussion for MRI C-spine follow up arranged with neurology Medication Changes From Visit 1000mcg cyanocobalamin in am Admission HPI Per Admitting Provider Cristal Mcgrath is a 57yo F with PMH of stroke with cerebral ischemia (August 2021), HTN, pre-diabetes, high cholesterol and microcytic hypochromic anemia who presented to the ED via referral by Gayle Marques PA-C ([facility]) for evaluation of increasing fatigue, alterations in vision of the left eye, right upper extremity weakness/numbness/tingling and nausea x 3 weeks. History obtained from patient and her daughter (who overall translates directly for the patient), and from PCP records. Patient was offered translation services in the ED (patient primarily speaks Nepali), but daughter prefers to be the direct advanced manufacturing engineer for her at this time. Daughter reports that the patient was seen by primary care yesterday (Gayle Marques PA-C) with the same continuation of symptoms she is presenting with here today; however, she was referred to report to the ED with any further mental status changes/no improvement of symptoms. Daughter reports that the patient experienced a stroke in August 2021, which left her with resulting weakness of the entire left side of her body. Patient does currently take 81mg of aspirin daily, and her daughter reports that the patient has not followed-up with neurology since her stroke in 2021. But over the past 3 weeks, the patient has been complaining of intermittently fleeting episodes of vision changes in her left eye and right arm weakness/numbness/tingling. Per her daughter, the patient has been experiencing on/off episodes of blurriness and "black spots" in her left eye. These episodes of vision alteration are typically invoked with positional changes, and are often worse when sitting down per the daughter's explanation. Patient does report dizziness sometimes during these episodes as well; daughter explains that the patient has to sit down and close both eyes to assist in the cessation of such episodes, which generally does the trick. Daughter denies any prior diagnosis of vertigo, nor that the patient takes any medication for dizzy spells. In addition, the right arm weakness/numbness/tingling generally comes "in waves" per her daughter. Patient does report pain in her right shoulder as well, which radiates all the way down to her hand during these "waves" of intermittent upper right extremity changes. Patient has not been taking any OTC pain medications for this fleeting right arm pain, per her daughter. Patient denies any left lower extremity deficits/changes at this time. Patient does report intermittent chest pain, which has also been occurring on/off for the past 3 weeks. Daughter denies any episodes of SOB associated with the chest pain, and also denies any prior occurrences where the patient experienced chest pain as so. Her daughter also mentions instances where the patient has been slurring her speech occasionally over the past 3 weeks. However, the daughter denies any signs of facial drooping at this time. Patient also denies any fevers, recent illnesses, body aches or headaches. Daughter did mention that the patient has become increasingly tired/fatigued x 3 weeks, and that the patient reports increased intensity of the symptoms discussed above ( left eye vision changes, right-sided UE weakness/numbness/tingling, dizziness, nausea) when she is sleepy. Patient denies any episodes of vomiting, and also denies taking any anti-emetic medications for the ongoing on/off nausea x 3 weeks. Daughter explains that the patient is able to ambulate just fine around the house (daughter lives with her); she does not use any assistive devices when walking (e.g., walker, cane, etc.) and does not require any direct assistance with ADLs. Daughter states that the patient has not had any recent falls or fainting spells/episodes where she's lost consciousness. Daughter mentions that the patient has been alert at home, but has been acting more exhausted. Pertinent Imaging Results - Performed by ED: Neck CTA shows no significant stenosis, occlusion or dissection within the carotid or vertebral arteries. Head CTA shows no acute vessel occlusion or intracranial aneurysm. Head CT displays no evidence of acute intracranial hemorrhage, midline shift or acute territorial infarct. Chest x-ray shows no acute process within the chest; mild cardiomegaly was n oted, however, it was mentioned it may be technical. Pertinent Lab Results - Performed by ED: CBC displays slight leukopenia, as well as microcytic, hypochromic anemia. Chem panel displays slightly elevated in BUN/Cr ratio, hyperglycemia. Other Pertinent Results - Performed by ED: Personal interpretation of the EKG reveals normal sinus rhythm, no acute ischemic changes; Vent rate 62bpm, MO interval 146ms, QRS duration 76ms. Admission Exam Per Admitting Provider Constitutional: WD/WN, vitals as above Eyes: + nystagmus (noted in the left eye on ex amination); normal pupil size Patient having difficulty viewing the left upper visual field with her left eye, complicated by horizontal nystagmus in the left eye upon conducting neurological examination. Neck: trachea midline, no thyromegaly Respiratory: normal respiratory effort, lungs clear to auscultation Cardiovascular: RRR, no murmur, no edema Gastrointestinal (Abdomen): normal bowel sounds, soft, nontender, no hepatosplenomegaly Musculoskeletal: Head/Neck/Chest: neck supple; full ROM of neck Extremities: extremities normal to inspection; full ROM of extremities and full ROM of lower extremities Shoulder: normal ROM of shoulder Knee: normal ROM of knee Strength 3/5 L UE, Strength 5/5 R UE Skin: no rashes, warm and dry Neurologic: Speech / Cognition: normal speech Coordination: normal [id number] test, normal [id number] test and normal rapid alternating movements Psychiatric: A+Ox3, euthymic affect Apperance: appropriately dressed and appropriately groomed Eye Contact: good eye contact Speech: normal rate/rhythm/volume of speech Principal Dx & Hospital Course #1 = Principal Diagnosis (1) Generalized weakness: (2) Microcytic hypochromic anemia: (3) HTN (hypertension): (4) Pre-diabetes: (5) High cholesterol: Plan Ms. Cristal Mcgrath is a 57yo F with PMH of stroke with cerebral ischemia (August 2021) with residual left-sided weakness , HTN, pre-diabetes, high cholesterol and microcytic hypochromic anemia who presented to the ED via referral by Gayle Marques PA-C ([facility]) for evaluation of increasing fatigue, alterations in vision of the left eye, right upper extremity weakness/numbness/tingling and nausea x 3 weeks. Neurology evalauted patient who does not suspect stroke or TIA; however would like to rule out GCA or NAION/AION. ESR and CRP negative. Patient without local tenderness to temporal region. Patient denied any current vision symptoms. [place] communication with Dr. Yin revealed that patient can discharge and follow up in office for dilated funduscopy as acute neurologic issues have been ruled out. #Headache #Vision Changes within Left eye #Prior stroke with left deficits Neck CTA shows no significant stenosis, occlusion or dissection within the carotid or vertebral arteries. Head CTA shows no acute vessel occlusion or intracranial aneurysm. Head CT displays no evidence of acute intracranial hemorrhage, midline shift or acute territorial infarct. brain MRI: chronic infarcts in basal ganglia, no acute changes routine neuro consult -ESR/CRP normal -Will obtain ophthalmology consult to r/o NAION/AION -given acute neurologic issues ruled out, will ensure OP follow up echo w/ bubble study EF 60-65%, no ASD/PFO LDL at goal <70 Continue aspirin 81mg po daily, high-dose statin. #Microcytic hypochromic anemia: CBC displays slight leukopenia, as well as microcytic, hypochromic anemia. B12 low, will replace --could contribute to fatigue TSH wnl #HTN Continue home amlodipine 10mg po QAM and losartan 25mg po QAM. # Pre-diabetes: A1C 5.8 earlier this month. #HLD stable, ldl at goal Continue home atorvastatin 80mg po QAM. Discharge Exam Constitutional WD/WN, vitals as above Eyes no nystagmus noted on todays exam Respiratory normal respiratory effort, lungs clear to auscultation Cardiovascular RRR, no murmur, no edema Musculoskeletal no cyanosis or clubbing, extremities motor strength 5/5 Neurologic PERRL, EOMI, accommodation nl, no face palsy, no dysarthria Updated Medication List Medication Instructions Recorded Confirmed Type amlodipine 10 mg tablet 10 mg PO QAM 08/13/23 08/13/23 History aspirin 81 mg tablet 81 mg PO DAILY 08/13/23 08/13/23 History atorvastatin 80 mg tablet 80 mg PO QAM 08/13/23 08/13/23 History losartan 25 mg tablet 25 mg PO QAM 08/13/23 08/13/23 History cyanocobalamin (vitamin B-12) 500 1,000 mcg (2 x 500 mcg) PO QAM #60 08/15/23 Rx mcg tablet tabs Hospital Stay Data Consultations 08/13/23 11:34 ED Decision to Admit Stat 08/13/23 13:53 Consult Neurology Routine Diagnostic Imagining Performed 08/13/23 09:29 CT head/brain wo con Stat CTA head w con [CT angio head w con] Stat CTA neck with con [CT angio neck with con] Stat 08/13/23 15:59 MR brain wo/w con Routine Pending Results Patient Have Any Pending Studies at Discharge: No Discharge Instructions Given to Patient (Per Discharging Provider) You were admitted for evaluation of right arm ache and numbness. MRI brain was negative for stroke or brain disease Markers of inflammation were negative. Please follow up with your primary doctor to discuss referral for Ophthalmology for dilated eye evaluation. Please discuss obtaining MRI of your neck if your arm symptoms continue. Neurology will follow up with outpatient EMG to assess nerve function in right arm. You were noted to have low B12. A prescription was sent to your pharmacy. Please take 1,000mcg (2tabs) in the morning. Please continue all home medications as prescribed. Total Time Total Time Spent Total Time Spent (In Minutes): 35
== END 2023-08-15 13:02 | disposition home or self-care (01) ==
LOC: EDINP 09:04 → ED 09:04 → SUATTDRO 12:04 → 2E 22:16
DX: I10 Essential (primary) hypertension; Z82.3 Family history of stroke; R51.9 Headache, unspecified; I69.354 Hemiplegia and hemiparesis following cerebral infarction affecting left non-dominant side; Z79.899 Other long term (current) drug therapy; R53.1 Weakness; R73.03 Prediabetes; E78.5 Hyperlipidemia, unspecified; D50.9 Iron deficiency anemia, unspecified; H53.9 Unspecified visual disturbance; R20.2 Paresthesia of skin; Z79.82 Long term (current) use of aspirin